=== PATIENT | female | born 1940 | race Caucasian/White ===

== ENCOUNTER 2021-05-04 12:23 | Emergency (ER) | payer MEDICARE, OTHER ==
[2021-05-04] MEDS ORDERED: LABETALOL 20 MG/4 ML SYRINGE IVP STA (13:05)
[2021-05-04] MEDS ORDERED: HYDROmorphone 1 MG/ML CARPUJECT IVP STA (13:05)
[2021-05-04] MEDS ORDERED: ONDANSETRON 4 MG/2 ML VIAL IVP STA (13:05)
--- NOTE | 2021-05-04 13:07 | ED Physician Documentation ---
PD HPI ABD PAIN - Stated complaint Stated Complaint: VOMITING,ABF PX,NAUSEA - Chief complaint Chief Complaint: Abd Pain - History obtained from History obtained from: Patient - Additional information Additional information: Relatively healthy 81-year-old woman with history of remote cholecystectomy and as well as hypertension and hyperlipidemia presents with severe sudden onset diffuse abdominal pain radiating to the back "like a fist." It started at 8 AM after eating a light breakfast of coffee and biscotti. She is vomited several times. States she had a normal bowel movement this morning. States she is had milder episodes of similar pain in the past but without clear diagnosis. Review of Systems Ten Systems: 10 systems reviewed and negative Constitutional: reports: Chills Eyes: reports: Reviewed and negative Ears: reports: Reviewed and negative Nose: reports: Reviewed and negative Throat: reports: Reviewed and negative Cardiac: reports: Reviewed and negative PD PAST MEDICAL HISTORY - Past Medical History Cardiovascular: Hypertension, High cholesterol Respiratory: None Endocrine/Autoimmune: None GI: None HEENT: Other Psych: None Musculoskeletal: None Derm: None - Past Surgical History General: Cholecystectomy /[employer]: section, Hysterectomy HEENT: Cataracts Derm: Skin cancer surgery - Present Medications Home Medications: Ambulatory Orders Medication Instructions Recorded Confirmed Simvastatin 20 mg PO DAILY 11/30/13 05/04/21 lisinopriL [Prinivil] 20 mg PO DAILY 11/30/13 05/04/21 - Allergies Allergies/Adverse Reactions: Allergies Allergy/AdvReac Type Severity Reaction Status Date / Time morphine Allergy Unknown Unknown Verified 05/04/21 12:38 ciprofloxacin [From Cipro] Allergy Hives Verified 05/04/21 12:38 ciprofloxacin HCl * Allergy Hives Verified 05/04/21 12:38 [From Cipro] - Social History Does the pt smoke?: No Smoking Status: Never smoker PD ED PE NORMAL - Vitals Vital signs reviewed: Yes - General General: Alert and oriented X 3, Other (She is hypertensive and tachycardic, she is having rigors and appears ill.) - HEENT HEENT: PERRL, EOMI - Neck Neck: Supple, no meningeal sign, No bony TTP - Cardiac Cardiac: Other (Tachycardic but regular without murmur) - Respiratory Respiratory: No respiratory distress, Clear bilaterally - Abdomen Abdomen: Other (I do not appreciate bowel tones, she is nontender, No pulsatile mass.) - Back Back: No CVA TTP, No spinal TTP - Derm Derm: Normal color, Warm and dry - Extremities Extremities: No edema, No calf tenderness / cord - Neuro Neuro: Alert and oriented X 3, Normal speech Results - Vitals Vitals: Vital Signs - 24 hr 05/04/21 05/04/21 05/04/21 12:33 13:30 13:35 Temperature 37.0 C Heart Rate 105 H 118 H 104 H Respiratory 20 Rate Blood Pressure 180/76 H 162/60 H 142/61 H O2 Saturation 95 86 L 96 05/04/21 05/04/21 05/04/21 16:37 18:20 20:33 Temperature 36.9 C 36.8 C 36.9 C Heart Rate 109 H 105 H 100 Respiratory 18 16 16 Rate Blood Pressure 124/71 122/57 L 104/55 L O2 Saturation 94 94 96 05/04/21 22:15 Temperature 36.8 C Heart Rate 96 Respiratory 16 Rate Blood Pressure 102/69 O2 Saturation 96 Oxygen O2 Source Nasal cannula Oxygen Flow Rate 2 - EKG (time done) 1315 Rate: Rate (enter#) (115) Rhythm: Sinus tachycardia [place]: Normal Intervals: Normal AR QRS: Normal Ischemia: No: ST elevation c/w ischemia, ST depression - Labs Labs: Laboratory Tests 05/04/21 05/04/21 05/04/21 12:53 13:13 13:13 WBC 14.1 H RBC 4.49 Hgb 14.4 Hct 44.7 MCV 99.6 H MCH 32.1 H MCHC 32.2 RDW 12.9 Plt Count 222 MPV 11.6 H Neut # (Auto) 12.2 H Lymph # (Auto) 1.3 L [place] # (Auto) 0.6 Eos # (Auto) 0.0 Baso # (Auto) 0.0 Absolute Nucleated RBC 0.00 Nucleated RBC % 0.0 Sodium 141 Potassium 4.1 Chloride 102 Carbon Dioxide 24 Anion Gap 15.0 H BUN 23 H Creatinine 0.7 Estimated GFR (MDRD) 80 L Glucose 144 H Lactic Acid Calcium 9.1 Total Bilirubin 3.8 H AST 371 H ALT 196 H Alkaline Phosphatase 181 H Troponin I High Sens Total Protein 7.9 Albumin 4.2 Globulin 3.7 Albumin/Globulin Ratio 1.1 Lipase 39 Urine Color DARK YELLOW Urine Clarity CLEAR Urine pH 7.0 Ur Specific [place] 1.020 Urine Protein TRACE Urine Glucose (UA) NEGATIVE Urine Ketones NEGATIVE Urine Occult Blood NEGATIVE Urine Nitrite NEGATIVE Urine Bilirubin SMALL H Urine Urobilinogen 4 H Ur Leukocyte Esterase NEGATIVE Ur Microscopic Review NOT INDICATED Urine Culture Comments NOT INDICATED Nasal Adenovirus (PCR) Nasal B. parapertussis DNA (PCR) Nasal Coronavir 229E PCR Nasal Coronavir HKU1 PCR Nasal Coronavir NL63 PCR Nasal Coronavir OC43 PCR Nasal Enterovir/Rhinovir PCR Nasal Influenza B PCR Nasal Influenza A PCR Nasal Parainfluen 1 PCR Nasal Parainfluen 2 PCR Nasal Parainfluen 3 PCR Nasal Parainfluen 4 PCR Nasal RSV (PCR) Nasal B.pertussis DNA PCR Nasal C.pneumoniae (PCR) Jeff Human Metapneumo PCR Nasal M.pneumoniae (PCR) Nasal SARS-CoV-2 (PCR) 05/04/21 05/04/21 05/04/21 13:13 13:13 16:31 WBC RBC Hgb Hct MCV MCH MCHC RDW Plt Count MPV Neut # (Auto) Lymph # (Auto) [place] # (Auto) Eos # (Auto) Baso # (Auto) Absolute Nucleated RBC Nucleated RBC % Sodium Potassium Chloride Carbon Dioxide Anion Gap BUN Creatinine Estimated GFR (MDRD) Glucose Lactic Acid 2.8 H Calcium Total Bilirubin AST ALT Alkaline Phosphatase Troponin I High Sens 6.3 Total Protein Albumin Globulin Albumin/Globulin Ratio Lipase Urine Color Urine Clarity Urine pH Ur Specific [place] Urine Protein Urine Glucose (UA) Urine Ketones Urine Occult Blood Urine Nitrite Urine Bilirubin Urine Urobilinogen Ur Leukocyte Esterase Ur Microscopic Review Urine Culture Comments Nasal Adenovirus (PCR) NOT DETECTED Nasal B. parapertussis DNA (PCR) NOT DETECTED Nasal Coronavir 229E PCR NOT DETECTED Nasal Coronavir HKU1 PCR NOT DETECTED Nasal Coronavir NL63 PCR NOT DETECTED Nasal Coronavir OC43 PCR NOT DETECTED Nasal Enterovir/Rhinovir PCR NOT DETECTED Nasal Influenza B PCR NOT DETECTED Nasal Influenza A PCR NOT DETECTED Nasal Parainfluen 1 PCR NOT DETECTED Nasal Parainfluen 2 PCR NOT DETECTED Nasal Parainfluen 3 PCR NOT DETECTED Nasal Parainfluen 4 PCR NOT DETECTED Nasal RSV (PCR) NOT DETECTED Nasal B.pertussis DNA PCR NOT DETECTED Nasal C.pneumoniae (PCR) NOT DETECTED Jeff Human Metapneumo PCR NOT DETECTED Nasal M.pneumoniae (PCR) NOT DETECTED Nasal SARS-CoV-2 (PCR) NOT DETECTED - Rads (name of study) Abd sono Radiology: EMP read contemporaneously (Abdominal ultrasound shows mild intra and extrahepatic biliary dilatation which the radiologist felt was consistent with her cholecystectomy state, nonvisualization of the pancreas, mild steatosis or other liver disease.) PD MEDICAL DECISION MAKING - ED course ED course: 81-year-old woman presents with acute generalized abdominal pain. She is a remote history of cholecystectomy but states that there was potentially retained gallstone. The pain radiates to the back. Differential diagnosis includes vascular emergency such as AAA or dissection as well as biliary etiology, ulcer, perforation. She is not tender. Labs demonstrate elevated white blood cell count of 14.1 and elevated liver enzymes with a bilirubin of 3.8, AST 371, ALT 196, a alkaline phosphatase at 181. Cardiac markers are negative. Lactate slightly elevated at 2.8. Abdominal ultrasonography was unrevealing but angiography demonstrates 10millimeter distal common bile duct stone with obstruction. Patient prefers transfer to [facility], my understanding is that not all of their GI consultants on-call do ERCP so we will call them and check. [facility] was unable to accept her and [facility] was called a few minutes after 4 PM. Case discussed by it with Dr. Levin, GI in [place] who will see in consultation and defers to the hospitalist for admission. She was accepted to [facility] by Dr. Felipe Hanson at approximately 5:40 PM. [place] are completed and she is stable for transport. Departure - Departure Disposition: 02 Transfer Acute Care Hosp Clinical Impression: Choledocholithiasis, Obstructive jaundice Abdominal pain Qualifiers: Abdominal location: generalized Qualified Code(s): R10.84 - Generalized abdominal pain Condition: Serious
[2021-05-04 13:16] LABS: BASOPHILS % (AUTO) 0.1 %; EOSINOPHILS % (AUTO) 0.1 %; HCT - HEMATOCRIT 44.7 % (37.0-47.0); HGB - HEMOGLOBIN 14.4 g/dL (12.0-16.0); LYMPHOCYTES # (AUTO) 1.3 10^3/uL (1.5-3.5); LYMPHOCYTES % (AUTO) 9.3 %; MEAN CORPUSCULAR HEMOGLOBIN 32.1 pg (27.0-31.0); MEAN CORPUSCULAR HGB CONC 32.2 g/dL (32.0-36.0); MEAN CORPUSCULAR VOLUME 99.6 fL (81.0-99.0); MEAN PLATELET VOLUME 11.6 fL (7.9-10.8); MONOCYTES # (AUTO) 0.6 10^3/uL (0.0-1.0); MONOCYTES % (AUTO) 3.9 %; NEUTROPHILS # (AUTO) 12.2 10^3/uL (1.5-6.6); NEUTROPHILS % (AUTO) 86.3 %; PLT - PLATELET COUNT 222 10^3/uL (130-450); RED BLOOD COUNT 4.49 10^6/uL (4.20-5.40); RED CELL DISTRIBUTION WIDTH 12.9 % (12.0-15.0); WHITE BLOOD COUNT 14.1 x10^3/uL (4.8-10.8)
[2021-05-04] MEDS ORDERED: IOVERSOL 320 100 ML VIAL IVP ONE ×2 (13:17→15:05)
[2021-05-04 13:35] LABS: ALBUMIN 4.2 g/dL (3.2-5.5); ALBUMIN/GLOBULIN RATIO 1.1 (1.0-2.2); BILIRUBIN,TOTAL 3.8 mg/dL (0.2-1.0); CALCIUM 9.1 mg/dL (8.5-10.3); CREATININE 0.7 mg/dL (0.4-1.0); POTASSIUM 4.1 mmol/L (3.5-5.0); TOTAL PROTEIN 7.9 g/dL (6.7-8.2)
[2021-05-04 13:44] LABS: GLUCOSE, URINE (UA) NEGATIVE (NEGATIVE); KETONES,URINE (UA) NEGATIVE (NEGATIVE); LEUKOCYTE ESTERASE, URINE NEGATIVE (NEGATIVE); NITRITE,URINE NEGATIVE (NEGATIVE); OCCULT BLOOD,URINE NEGATIVE (NEGATIVE); PROTEIN,URINE TRACE mg/dL (NEGATIVE); UROBILINOGEN,URINE 4 E.U./dL (NORMAL)
[2021-05-04 13:48] LABS: BILIRUBIN,URINE SMALL (NEGATIVE); CLARITY,URINE CLEAR (CLEAR); ICTOTEST,URINE POSITIVE
--- NOTE | 2021-05-04 15:24 | Ultrasound Report ---
PROCEDURE: Abdomen Limited INDICATIONS: abd pain, elev liver enz TECHNIQUE: Real-time focused scanning was performed of the abdomen, with image documentation. Color and pulse D oppler interrogation was also performed on the area of interest. COMPARISON: None FINDINGS: The pancreas was not seen due to lack of good acoustic window. The gallbladder surgically absent. Liver is normal size measuring 16.7 cm in length and demonstrates heterogeneous hyperechoic liver par enchyma diffusely. There is appropriate direction of flow in the portal vein. No discrete hepatic mas s. The common duct is appropriate for age and cholecystectomy status measuring 8.5 mm. There is prominen ce of the left lobe biliary system. The right kidney measures 10.4 cm in length and demonstrates normal cortical thickness at 1.1 cm. The re is no hydronephrosis or shadowing calculus. No fluid in Morison's pouch. IMPRESSION: 1. Post cholecystectomy and mild intra and extrahepatic biliary dilatation, likely due to cholecystec issac state. 2. Nonvisualization of the pancreas. 3. Mild hepatic steatosis or other intrinsic liver disease. Reviewed by: Pauline Magallanes MD on 05/04/2021 3:23 PM PDT Approved by: Pauline Magallanes MD on 05/04/2021 3:23 PM PDT Station ID: [id number]
--- NOTE | 2021-05-04 15:38 | CT Report ---
PROCEDURE: ANGIO ABDOMEN/PELVIS W INDICATIONS: abd pain rad to back CONTRAST: IV CONTRAST: Optiray 320 ml: 100 PO CONTRAST: *NO PO CONTRAST TECHNIQUE: After the administration of intravenous contrast, 2 and 5 mm sections acquired from the diaphragm to the iliac crests. 3-dimensional maximum intensity projection (MIP) coronal and sagittal reformats, a nd/or 3-dimensional volume rendering reformatting was then performed. For radiation dose reduction, the following was used: automated exposure control, adjustment of mA and/or kV according to patient size. COMPARISON: None. FINDINGS: Image quality: Excellent. Extravascular tissues: Lung bases are clear except for what could be a small degree of posterior rig ht lung base pneumonia, versus asymmetric atelectasis right greater than left. Heart size is normal. Liver and spleen are normal in size and enhancement. Intrahepatic bile ducts are mildly prominent in caliber centrally. The extrahepatic common duct measures up to 9 mm diameter and within the distal co mmon duct there is a peripherally high density structure that measures up to 10 mm, consistent with a common duct stone rather than distal common duct mass. Gallbladder is surgically absent . Pancreas enhances normally. No adrenal nodules. Kidneys are normal in size and enhancement, without hydronephrosis. Non-opacified bowel loops demonstrate normal wall thickness and caliber. No free f luid or air. No retroperitoneal or mesenteric adenopathy. No ventral hernias. No suspicious bony a bnormalities. No vertebral body compression fractures. Abdominal aorta: Normal in caliber, no evidence of aneurysm or dissection. Mesenteric arteries: No stenosis found. Renal arteries: No stenosis found. IMPRESSION: Unexpected finding of intra and extrahepatic biliary distention, currently mild in overa ll severity but associated with a distal common duct calculus, which measures up to 10 mm in diameter . This calculus shows a peripherally high density (faintly calcific) rim and is relatively radiolucen t within. It is located within the distal common duct and may not be completely obstructive. Acute pa ncreatitis is not associated. Gastroenterology consultation is recommended. If clinically desired MR cholangiogram could be performed to evaluate extent of disease. There may be additional common duct calculi that are not visible due to absence of a calcific rim. Noncalcified g allstones frequently are isodense to bile within the common duct or gallbladder lumen. Gallbladder is absent, surgically. No evidence of aortic or other vascular abnormality as cause of cu rrent symptomatology. Reviewed by: Al Henning MD on 05/04/2021 3:37 PM PDT Approved by: Al Henning MD on 05/04/2021 3:37 PM PDT Station ID: [id number]
[2021-05-04] MEDS ORDERED: AMPICILLIN/SULBACTAM 3 GM in SODIUM CHLORIDE 0.9% MINIBAG 100 ML IV STA (15:51)
[2021-05-04 17:30] LABS: B. PARAPERTUSSIS- RESP PCR PAN NOT DETECTED; B. PERTUSSIS- RESP PCR PANEL NOT DETECTED; C. PNEUMONIAE- RESP PCR PANEL NOT DETECTED; CORONAVIRUS 229E-RESP PCR NOT DETECTED; CORONAVIRUS HKU1-RESP PCR NOT DETECTED; CORONAVIRUS NL63-RESP PCR NOT DETECTED; CORONAVIRUS OC43-RESP PCR NOT DETECTED; HUMAN METAPNEUMOVIRUS NOT DETECTED; INFLUENZA A- RESP PCR PANEL NOT DETECTED; INFLUENZA B - RESP PCR PANEL NOT DETECTED; M. PNEUMONIAE- RESP PCR PANEL NOT DETECTED; PARAINFLUENZA VIRUS 1 NOT DETECTED; PARAINFLUENZA VIRUS 2 NOT DETECTED; PARAINFLUENZA VIRUS 3 NOT DETECTED; PARAINFLUENZA VIRUS 4 NOT DETECTED; RHINOVIRUS/ENTEROVIRUS NOT DETECTED; RSV- RESP PCR PANEL NOT DETECTED; SARS-CoV-2 -RESP PCR PANEL NOT DETECTED
[2021-05-04] MEDS ORDERED: AMPICILLIN/SULBACTAM 3 GM in SODIUM CHLORIDE 0.9% MINIBAG 100 ML IV SCH (21:00)
[2021-05-04] MEDS ORDERED: D5.45NS W/20 MEQ KCL 1,000 ML IV SCH (21:00)
[2021-05-04 22:16] VITALS: BP 102/69
== END 2021-05-04 22:30 | disposition short-term general hospital (02) ==
LOC: ED 12:23
DX: K80.50 Calculus of bile duct without cholangitis or cholecystitis without obstruction (principal); K80.51 Calculus of bile duct without cholangitis or cholecystitis with obstruction; Z20.822 Contact with and (suspected) exposure to COVID-19
CPT/HCPCS: 36415; 74174; 76705; 80053; 81003; 83605; 83690; 84484; 85025; 87631; 93005; 96365; 96366; 96375; 99285; J1170; Q9967; 0202U; 81001; 87086

== ENCOUNTER 2021-05-04 22:31 | Outpatient (CLI) | payer MEDICARE | END 2021-05-04 22:32 | disposition short-term general hospital (02) | LOC: EMS 22:31 | PROVIDERS: ATTEND Emergency Medicine | DX: K80.50 Calculus of bile duct without cholangitis or cholecystitis without obstruction (principal) | CPT/HCPCS: A0425; A0428 ==